=== PATIENT | male | born 1960 | race Two or more races ===

== ENCOUNTER 2020-04-30 12:22 | Inpatient (IN) | payer MEDICAID, OTHER ==
[~2020-04-30] VITALS: Ht 165.1 cm; Wt 82.5 kg
[2020-04-30] MEDS ORDERED: methylPREDNISolone SOD SUCC 125 MG/2 ML VL IV ONE (12:45)
[2020-04-30 13:29] LABS: Basophils # (auto) 0.1 10 ^3/uL (0-0.2); Basophils % (auto) 0.6 % (0.0-2.0); Eosinophils # (auto) 0 10 ^3/uL (0-0.8); Eosinophils % (auto) 0.3 % (0.0-7.0); Hematocrit 50.4 % (41.0-53.0); Lymphocytes # (auto) 0.7 10 ^3/uL (0.4-5.4); Lymphocytes % (auto) 6.2 % (10.0-50.0); Mean Corpuscular Hgb Conc. 33.7 g/dL (32.0-36.0); Mean Corpuscular Volume 86.2 fL (80.0-100.0); Monocytes # (auto) 0.7 10 ^3/uL (0-1.3); Monocytes % (auto) 5.5 % (0.0-12.0); Neutrophils # (auto) 10.3 10 ^3/uL (1.6-8.6); Neutrophils % (auto) 87.4 % (37.0-80.0); Nucleated Red Blood Cells % 0.1 %; Platelet Count (auto) 348 10^3/uL (140-450); Red Blood Cells 5.84 10^6/uL (4.5-5.90); Red Cell Distribution Width 13.4 % (11.8-14.3); White Blood Cell 11.8 10^3/uL (4.4-10.8)
[2020-04-30 13:55] LABS: Lactic Acid w/Reflex 2.3 mmol/L (0.4-2.0)
[2020-04-30 13:56] LABS: Albumin 2.3 g/dL (3.4-5.0); Anion Gap 10 (5-15); Blood Urea Nitrogen 24 mg/dL (7-18); Calcium 8.5 mg/dL (8.5-10.1); Carbon Dioxide 22 mmol/L (21-32); Chloride 108 mmol/L (98-107); Glucose 87 mg/dL (74-106); Potassium 3.7 mmol/L (3.5-5.1); Sodium 140 mmol/L (136-145)
[2020-04-30 14:04] LABS: Alanine Aminotransferase 51 U/L (16-61); Alkaline Phosphatase 94 U/L (45-117); Aspartate Aminotransferase 59 U/L (15-37); BUN/Creatinine Ratio 25.8; Bilirubin, Total 1.4 mg/dL (0.2-1.0); GFR African American 107 mL/min; GFR Non-African American 88 mL/min; Lactate Dehydrogenase 567 U/L (87-241)
[2020-04-30 14:24] LABS: CRP High Sensitivity > 19 mg/dL (< 0.3)
[2020-04-30] MEDS ORDERED: ONDANSETRON HCL 4 MG/2 ML VIAL IV PRN (15:15)
[2020-04-30] MEDS ORDERED: DOCUSATE SOD 100 MG CAP PO PRN (15:15)
[2020-04-30] MEDS ORDERED: VANCOMYCIN PER PHARMACY 0 MG IV SCH (15:15)
[2020-04-30] MEDS ORDERED: MORPHINE SULF INJ 2 MG/ML SYRINGE 1ML IV PRN ×2 (15:15)
[2020-04-30] MEDS ORDERED: NITROGLYCERIN 0.4 MG SL TAB SL PRN (15:15)
[2020-04-30] MEDS ORDERED: ACETAMINOPHEN 500 MG TAB PO PRN (15:15)
[2020-04-30] MEDS ORDERED: ENOXAPARIN SOD 80 MG/0.8ML SYRINGE SC ONE (15:30)
[2020-04-30] MEDS ORDERED: PIPERACILLIN-TAZOB 3.375GM 100 ML IV ONE (15:30)
[2020-04-30] MEDS ORDERED: FUROSEMIDE 100 MG/10ML VIAL IV ONE (18:00)
[2020-04-30 19:16] LABS: Cholesterol 138 mg/dL (< 200); HDL Cholesterol 26 mg/dL (40-59); LDL Cholesterol 101 mg/dL (< 100); Triglycerides 119 mg/dL (< 150)
[2020-04-30] MEDS: VANCOMYCIN 1GM/250ML 250 ML IV SCH (20:26)
[2020-04-30] MEDS: methylPREDNISolone SOD SUCC 40 MG/ML VL IV SCH (21:32)
[2020-04-30] MEDS: ATORVASTATIN 20 MG TAB PO SCH (21:33)
--- NOTE | 2020-04-30 21:45 | NUR ---
ADMITTED PATIENT FROM THE ER, AAOX4. SOB NOTED. AFEBRILE. DENIES ANY PAIN NOW. PATIENT IS TACHYPNEIC. PATIENT IS IN A NRM AT 15 LPM. EDUCATED PATIENT ON PRONING. UNABLE TO TOLERATE IT. MADE RT AWARE OF THE SITUATION. CALL CHARGE NURSE JACE TO GET A BOX TO MONITOR PATIENT'S SATURATION. ORIENTATION GIVEN. ROUTINE ADMISSION INITIATED. POCS DISCUSSED WITH PATIENT AND SHOWED UNDERSTANDING. BED KEPT ON LOWEST POSITION. SIDE RAILS UP. CALL LIGHT/TABLE IN REACH. KEPT COMFORTABLE.
[2020-04-30 22:00] VITALS: BP 130/82
--- NOTE | 2020-04-30 22:04 | NUR ---
MADE RT AWARE THAT PATIENT'S O2 SAT CAN ONLY GO UP TO 86% WITH THE NRM AT 15LPM. ENCOURAGED PRONING, BUT PATIENT SAID THAT HE IS NOT COMFORTABLE PRONING.
[2020-04-30] MEDS ORDERED: ALBU108A5 IN (22:17)
[2020-04-30] MEDS ORDERED: IBUP800T24 PO (22:17)
[2020-04-30] MEDS ORDERED: PRED20TA2 PO (22:17)
[2020-04-30] MEDS ORDERED: LOSA25TA38 PO (22:17)
[2020-04-30] MEDS ORDERED: ACET-1304 PO (22:17)
--- NOTE | 2020-04-30 22:30 | NUR ---
O2 SAT MONITOR NOT WORKING WHEN CONNECTED TO THE TELE BOX. SPOKE WITH ICU TO CHANGE TELE BOX TO SEE IF IT WORKS THIS TIME.
[2020-04-30] MEDS: ALBUTEROL SULF HFA 90MCG INH 200DOSE IN SCH (22:55)
[2020-04-30] MEDS: BUDESONIDE (INHALATION) 180 MCG IH IN SCH (22:55)
[2020-04-30] MEDS: PIPERACILLIN-TAZOB 3.375GM 100 ML IV SCH (23:39)
[2020-05-01 02:10] VITALS: BP 130/82
[2020-05-01 05:00] VITALS: BP 101/63
[2020-05-01] MEDS: methylPREDNISolone SOD SUCC 40 MG/ML VL IV SCH ×2 (05:40→16:10)
[2020-05-01] MEDS: FUROSEMIDE 20 MG/2 ML VIAL IV SCH ×2 (05:40→18:44)
[2020-05-01] MEDS: PIPERACILLIN-TAZOB 3.375GM 100 ML IV SCH ×2 (05:41→13:13)
[2020-05-01 06:27] LABS: Basophils # (auto) 0 10 ^3/uL (0-0.2); Basophils % (auto) 0.2 % (0.0-2.0); Eosinophils # (auto) 0 10 ^3/uL (0-0.8); Hematocrit 51.3 % (41.0-53.0); Hemoglobin 16.7 g/dL (13.5-17.5); Lymphocytes # (auto) 0.7 10 ^3/uL (0.4-5.4); Lymphocytes % (auto) 7.3 % (10.0-50.0); Mean Corpuscular Hemoglobin 28.6 pg (28.0-32.0); Mean Corpuscular Hgb Conc. 32.6 g/dL (32.0-36.0); Mean Corpuscular Volume 87.7 fL (80.0-100.0); Monocytes # (auto) 0.3 10 ^3/uL (0-1.3); Monocytes % (auto) 2.8 % (0.0-12.0); Neutrophils # (auto) 8.5 10 ^3/uL (1.6-8.6); Neutrophils % (auto) 89.7 % (37.0-80.0); Nucleated Red Blood Cells % 0.2 %; Platelet Count (auto) 400 10^3/uL (140-450); Red Blood Cells 5.85 10^6/uL (4.5-5.90); Red Cell Distribution Width 13.1 % (11.8-14.3); White Blood Cell 9.5 10^3/uL (4.4-10.8)
[2020-05-01 06:48] LABS: Albumin 2.2 g/dL (3.4-5.0); Calcium 8.9 mg/dL (8.5-10.1); Potassium 3.5 mmol/L (3.5-5.1)
[2020-05-01 06:54] LABS: BUN/Creatinine Ratio 26.3; Bilirubin, Total 1.2 mg/dL (0.2-1.0); Total Protein 8.5 g/dL (6.4-8.2)
[2020-05-01] MEDS: BUDESONIDE (INHALATION) 180 MCG IH IN SCH ×2 (07:19→22:14)
[2020-05-01] MEDS: ALBUTEROL SULF HFA 90MCG INH 200DOSE IN SCH ×3 (07:19→22:14)
--- NOTE | 2020-05-01 07:30 | NUR ---
Opening Shift Note Assumed patient care from NOC RN. Patient is currently laying in bed prone 15L nonrebreather mask. Patient experiences shortness of breath, tachypnea, and O2 saturation decreased to 86% with exertion/sitting up in bed. Patient O2 saturation currently at 93%. Safety precautions in place. Patient states, "I don't feel short of breath when I relax." Will continue to monitor q1hr and PRN.
[2020-05-01 09:00] VITALS: BP 124/72
[2020-05-01] MEDS: ASPirin 81 mg TAB PO SCH (09:06)
[2020-05-01] MEDS: ZINC SULFATE 220mg CAP or TAB PO SCH (09:06)
[2020-05-01] MEDS: VANCOMYCIN 1GM/250ML 250 ML IV SCH (09:07)
[2020-05-01] MEDS: ENOXAPARIN SOD 80 MG/0.8ML SYRINGE SC SCH ×2 (09:07→22:19)
--- NOTE | 2020-05-01 12:26 | NUR ---
Nutrition Assessment/Consult Notes Please refer to link for full assessment notes. Est Energy needs: 7048-3529 kcals (17-20 kcal/kgBW) Est Protein needs: 67-84 gms/day (0.8-1.0 gm/kgBW) Will continue to monitor and reassess prn. Addendum: 05/01/20 at [address] Amended: Links added.
[2020-05-01 13:00] VITALS: BP 123/80
[2020-05-01] MEDS: CHOLECALCIFEROL (VITD3) 2,000 UNIT CAP PO SCH (13:13)
[2020-05-01] MEDS: ASCORBIC ACID 1,000 MG TAB PO SCH (13:13)
--- NOTE | 2020-05-01 15:24 | NUR ---
SpO2 Patient SpO2 decreased to 73%. On assessment patient was tachypneic and tachycardic. Per patient, he was washing his face with a washcloth and briefly removed mask to clean face. Patient educated on need to maintain nonrebreather mask; patient verbalized understanding. Patient placed in prone position RR 28 Spo2 currently 96% on 15L nonrebreather mask. Safety precautions in place, continuous pulse ox in place. Will continue to monitor q1hr and PRN. Left message with Dr. Moody notifying of patient status.
--- NOTE | 2020-05-01 16:19 | NUR ---
assessment re: ss consult Insurance Patient is a 59 year old male who is alert and oriented. Per patients daughter Yun patient lives home with family and is independent. Patient still works. Patient has no need for DME. Patients whole family is covid positive isolating at home. I informed Yun that per consult no insurance. I informed Yun that patient has medi-johana per our census. I will have Guerrero Canales from [facility] look into insurance status of his medi-johana. I informed Yun I will continue to monitor and follow up as appropriate for any post discharge needs. Yun verbalized understanding. Addendum: 05/01/20 at 1622 by Emily JANSEN Amended: Links added.
[2020-05-01] MEDS ORDERED: REMDESIVIR PER PHARMACY IV SCH (16:30)
[2020-05-01] MEDS ORDERED: AZITHROMYCIN 250 MG TAB PO ONE (16:30)
--- NOTE | 2020-05-01 16:50 | NUR ---
Called Patient currently refusing plasma due to mormonism restrictions ([employer]thodox). Dr. Moody notified and is aware.
[2020-05-01 17:00] VITALS: BP 123/77
--- NOTE | 2020-05-01 17:08 | NUR ---
Consents Corey Patient currently reviewing consent form in Syriac. Per patient, he is "almost finished."
--- NOTE | 2020-05-01 17:30 | NUR ---
Consents Medication consent faxed to pharmacy.
--- NOTE | 2020-05-01 19:27 | NUR ---
Closing Shift Note Endorsed care to NOC RN. Patient currently on 15L nonrebreather at 93% SpO2.
--- NOTE | 2020-05-01 19:31 | NUR ---
Opening Shift Note Assumed care of patient, awake and alert. No S/S of distress/SOB or pain. Instructed on POC and to call for assistance PRN, will continue to monitor for changes Q1hr and PRN. Safety precautions in place bed is in lowest position and locked, bed rails 2x.
[2020-05-01] MEDS ORDERED: REMDESIVIR 200 MG in NS 210ml LOADING DOSE ADULT IV ONE (20:00)
--- NOTE | 2020-05-01 21:56 | NUR ---
Remdesivir Administration Pre infusion BP:111/66 HR: 109, 15 minutes after the start of infusion BP: 116/65 HR: 94 No s/s of distress or SOB, tolerating well, Post infusion BP: 120/74 HR: 99 Patient has no s/s of distress or SOB, no complaints. Will continue to monitor Q1 and PRN.
[2020-05-01 22:00] VITALS: BP 111/66
[2020-05-01] MEDS: ATORVASTATIN 20 MG TAB PO SCH (22:19)
[2020-05-01 23:01] LABS: Urine Bacteria NONE SEEN /hpf (None Seen); Urine Blood Negative /uL (Negative); Urine Specific Gravity 1.018 (1.001-1.035); Urine WBC 1 /hpf (0 - 3)
[2020-05-01 23:22] LABS: Alcohol, Urine < 3.0 mg/dL (0-10); Amphetamine Screen, Urine NEGATIVE (NEGATIVE); Barbiturate Scree,Urine NEGATIVE (NEGATIVE); Benzodiazephine Screen, Urine NEGATIVE (NEGATIVE); Cannabinoid Screen, Urine NEGATIVE (NEGATIVE); Cocaine Screen, Urine NEGATIVE (NEGATIVE); Opiate Scree,Urine NEGATIVE (NEGATIVE); Phencyclidine Screen, Urine NEGATIVE (NEGATIVE)
[2020-05-02 05:00] VITALS: BP 115/69
[2020-05-02] MEDS: ALBUTEROL SULF HFA 90MCG INH 200DOSE IN SCH ×3 (06:00→22:10)
[2020-05-02] MEDS: FUROSEMIDE 20 MG/2 ML VIAL IV SCH ×2 (06:42→17:34)
[2020-05-02] MEDS: BUDESONIDE (INHALATION) 180 MCG IH IN SCH ×2 (07:07→22:10)
[2020-05-02 08:40] LABS: Lactic Acid w/Reflex 2.5 mmol/L (0.4-2.0)
[2020-05-02 09:00] VITALS: BP 106/73
[2020-05-02 09:00] LABS: Albumin 2.2 g/dL (3.4-5.0); BUN/Creatinine Ratio 35.1; Calcium 8.1 mg/dL (8.5-10.1); Potassium 3.4 mmol/L (3.5-5.1)
[2020-05-02 09:03] LABS: Bilirubin, Total 0.8 mg/dL (0.2-1.0); Total Protein 7.8 g/dL (6.4-8.2)
[2020-05-02] MEDS: ASPirin 81 mg TAB PO SCH (10:30)
[2020-05-02] MEDS: DexAMETHasone SOD PHOS 10MG/1ML VIAL INJ IV SCH (10:30)
[2020-05-02] MEDS: ZINC SULFATE 220mg CAP or TAB PO SCH (10:31)
[2020-05-02] MEDS: AZITHROMYCIN 250 MG TAB PO SCH (10:31)
[2020-05-02] MEDS: ASCORBIC ACID 1,000 MG TAB PO SCH (10:31)
[2020-05-02] MEDS: CHOLECALCIFEROL (VITD3) 2,000 UNIT CAP PO SCH (10:31)
[2020-05-02] MEDS: ACETAMINOPHEN 325 MG TAB PO PRN (10:32)
[2020-05-02] MEDS: ENOXAPARIN SOD 80 MG/0.8ML SYRINGE SC SCH ×2 (10:32→22:11)
[2020-05-02 13:00] VITALS: BP 126/70
[2020-05-02 17:00] VITALS: BP 120/78
[2020-05-02] MEDS: REMDESIVIR 100mg in NS 230ml DAILYx4DAYS (NO VENT) IV SCH (17:08)
--- NOTE | 2020-05-02 19:22 | NUR ---
Opening Shift Note Assumed care of patient, awake, alert and oriented x4. Patient on 15L of oxygen via nonrebreather with even and unlabored respirations, no S/S of distress/SOB or pain. Patient able to turn in bed independently, bed in lowest locked position, side rails up x2, and call light within reach. Instructed on POC and to call for assist PRN, will continue to monitor for changes Q1hr and PRN.
[2020-05-02 21:46] VITALS: BP 123/72
[2020-05-02] MEDS: ATORVASTATIN 20 MG TAB PO SCH (22:11)
[2020-05-02] MEDS ORDERED: POTASSIUM CHL 20MEQ/100ML 100 ML IV ONE (22:30)
[2020-05-03 05:03] VITALS: BP 132/74
[2020-05-03] MEDS: FUROSEMIDE 20 MG/2 ML VIAL IV SCH ×2 (06:05→17:58)
[2020-05-03 07:07] LABS: Potassium 3.7 mmol/L (3.5-5.1)
[2020-05-03 07:14] LABS: Albumin 2.2 g/dL (3.4-5.0); BUN/Creatinine Ratio 36.3; Bilirubin, Total 0.7 mg/dL (0.2-1.0); Calcium 8.2 mg/dL (8.5-10.1); Total Protein 7.3 g/dL (6.4-8.2)
[2020-05-03] MEDS: ALBUTEROL SULF HFA 90MCG INH 200DOSE IN SCH ×3 (07:25→23:15)
[2020-05-03] MEDS: BUDESONIDE (INHALATION) 180 MCG IH IN SCH ×2 (07:25→23:15)
[2020-05-03 09:00] VITALS: BP 108/57
[2020-05-03] MEDS: DexAMETHasone SOD PHOS 10MG/1ML VIAL INJ IV SCH (10:15)
[2020-05-03] MEDS: CHOLECALCIFEROL (VITD3) 2,000 UNIT CAP PO SCH (10:16)
[2020-05-03] MEDS: ZINC SULFATE 220mg CAP or TAB PO SCH (10:16)
[2020-05-03] MEDS: AZITHROMYCIN 250 MG TAB PO SCH (10:16)
[2020-05-03] MEDS: ASCORBIC ACID 1,000 MG TAB PO SCH (10:16)
[2020-05-03] MEDS: ASPirin 81 mg TAB PO SCH (10:16)
[2020-05-03] MEDS: POTASSIUM CHL 20 Meq TABLET PO SCH (10:16)
[2020-05-03] MEDS: ENOXAPARIN SOD 80 MG/0.8ML SYRINGE SC SCH ×2 (10:17→22:19)
--- NOTE | 2020-05-03 12:10 | NUR ---
DR BROWNING AT BEDSIDE TO SEE PATIENT ALL QUESTIONS AND CONCERNS ADDRESSED.
[2020-05-03 13:00] VITALS: BP 124/75
[2020-05-03 16:46] VITALS: BP 120/71
--- NOTE | 2020-05-03 17:00 | NUR ---
REMDESIVIR STARTED BP 127/80 NO SIGNS OF DISTRESS.
[2020-05-03] MEDS: REMDESIVIR 100mg in NS 230ml DAILYx4DAYS (NO VENT) IV SCH (17:20)
--- NOTE | 2020-05-03 17:21 | NUR ---
BP 130/80 NO SIGNS OF DISTRESS.
[2020-05-03] MEDS: ACETAMINOPHEN 325 MG TAB PO PRN (18:45)
--- NOTE | 2020-05-03 19:21 | NUR ---
Opening Shift Note Assumed care of patient, awake, alert and oriented x4, on 15L of oxygen via nonrebreather with even and unlabored respirations, no S/S of distress/SOB or pain. Patient able to turn in bed independently, bed in lowest locked position, side rails up x2, and call light within reach. Instructed on POC and to call for assist PRN, will continue to monitor for changes Q1hr and PRN.
[2020-05-03 22:00] VITALS: BP 116/73
[2020-05-03] MEDS: ATORVASTATIN 20 MG TAB PO SCH (22:19)
[2020-05-03] MEDS: HYDROcodone-ACET 5/325MG TAB PO PRN (22:55)
[2020-05-04 03:40] VITALS: BP 116/73
[2020-05-04 05:00] VITALS: BP 136/81
[2020-05-04] MEDS: FUROSEMIDE 20 MG/2 ML VIAL IV SCH ×2 (06:20→18:07)
[2020-05-04] MEDS: HYDROcodone-ACET 5/325MG TAB PO PRN (06:30)
[2020-05-04] MEDS: ALBUTEROL SULF HFA 90MCG INH 200DOSE IN SCH ×3 (06:46→23:22)
[2020-05-04] MEDS: BUDESONIDE (INHALATION) 180 MCG IH IN SCH ×2 (06:46→23:22)
[2020-05-04 07:34] LABS: Basophils # (auto) 0.2 10 ^3/uL (0-0.2); Eosinophils # (auto) 0 10 ^3/uL (0-0.8); Hematocrit 50.2 % (41.0-53.0); Lymphocytes # (auto) 1.2 10 ^3/uL (0.4-5.4); Monocytes # (auto) 0.4 10 ^3/uL (0-1.3); Red Blood Cells 5.74 10^6/uL (4.5-5.90)
[2020-05-04 07:36] LABS: Basophils % (auto) 1.4 % (0.0-2.0); Hemoglobin 16.6 g/dL (13.5-17.5); Lymphocytes % (auto) 8.2 % (10.0-50.0); Mean Corpuscular Hemoglobin 28.8 pg (28.0-32.0); Mean Corpuscular Volume 87.4 fL (80.0-100.0); Monocytes % (auto) 2.8 % (0.0-12.0); Neutrophils % (auto) 87.6 % (37.0-80.0); Platelet Count (auto) 491 10^3/uL (140-450); Red Cell Distribution Width 12.9 % (11.8-14.3); White Blood Cell 14.8 10^3/uL (4.4-10.8)
[2020-05-04 07:48] LABS: Albumin 2.4 g/dL (3.4-5.0); Calcium 8.7 mg/dL (8.5-10.1); Magnesium 2.4 mg/dL (1.6-2.6); Potassium 3.9 mmol/L (3.5-5.1)
[2020-05-04 08:04] LABS: BUN/Creatinine Ratio 27.5; CRP High Sensitivity 5.81 mg/dL (< 0.3); Total Protein 7.8 g/dL (6.4-8.2)
[2020-05-04 09:00] VITALS: BP 130/75
[2020-05-04] MEDS: POTASSIUM CHL 20 Meq TABLET PO SCH (10:34)
[2020-05-04] MEDS: ASPirin 81 mg TAB PO SCH (10:34)
[2020-05-04] MEDS: DexAMETHasone SOD PHOS 10MG/1ML VIAL INJ IV SCH (10:34)
[2020-05-04] MEDS: ENOXAPARIN SOD 80 MG/0.8ML SYRINGE SC SCH ×2 (10:35→22:16)
[2020-05-04] MEDS: CHOLECALCIFEROL (VITD3) 2,000 UNIT CAP PO SCH (10:35)
[2020-05-04] MEDS: ASCORBIC ACID 1,000 MG TAB PO SCH (10:35)
[2020-05-04] MEDS: AZITHROMYCIN 250 MG TAB PO SCH (10:35)
[2020-05-04] MEDS: ZINC SULFATE 220mg CAP or TAB PO SCH (10:35)
[2020-05-04 13:00] VITALS: BP 120/70
--- NOTE | 2020-05-04 13:18 | NUR ---
Nutrition Followup Notes Pt wt is 83.4 kg Pt is positive for COVID, with a Regular diet. Pt appetite is good aeb ave 70% PO intake per RN doc. Est Energy needs: 6474-2264 kcals (17-20 kcal/kgBW) Est Protein needs: 67-84 gms/day (0.8-1.0 gm/kgBW) Will continue to monitor and reassess prn. LABS: BUN 22 H, GLUC 123 H, ALB 2.4 L GI: Pt had 1 BM on 05/03 per RN doc. BS: 21 low risk. Please refer to wound assessment report for further details PES: 1) Obesity r/t energy intake in excess of energy needs aeb BMI of 30.7 kg/2 2) Altered nutrition related lab values r/t current medical condition aeb elev RFT, hyperglycemia, hyperbilirubinemia, hypoalbuminemia Comments Will continue to monitor PO status, skin status, pertinent labs and weight trends. Will f/u in 3-5 days 1) Continue to closely monitor pt PO intake to meet at least 75% of meals 2) If albumin continues trending down, consider Prostat 1 pkt BID 3) Continue current plan of care
[2020-05-04 17:00] VITALS: BP 118/70
[2020-05-04] MEDS: REMDESIVIR 100mg in NS 230ml DAILYx4DAYS (NO VENT) IV SCH (17:31)
--- NOTE | 2020-05-04 19:50 | NUR ---
Opening Shift Note Assumed care of patient, awake and alert. No S/S of distress/SOB or pain. Bed locked and in lowest position with call light in reach. Instructed on POC and to call for assist PRN, will continue to monitor for changes Q1hr and PRN. Addendum: 05/04/20 at 2051 by RJ WOODS RN RN Patient is on 15 L Non-Rebreather
[2020-05-04] MEDS: ACETAMINOPHEN 325 MG TAB PO PRN (20:13)
[2020-05-04 22:00] VITALS: BP 116/67
[2020-05-04] MEDS: ATORVASTATIN 20 MG TAB PO SCH (22:15)
[2020-05-05 05:00] VITALS: BP 130/84
[2020-05-05] MEDS: FUROSEMIDE 20 MG/2 ML VIAL IV SCH ×2 (05:43→17:46)
[2020-05-05] MEDS: BUDESONIDE (INHALATION) 180 MCG IH IN SCH ×2 (06:37→21:58)
[2020-05-05] MEDS: ALBUTEROL SULF HFA 90MCG INH 200DOSE IN SCH ×3 (06:37→21:58)
[2020-05-05 06:54] LABS: Albumin 2.1 g/dL (3.4-5.0); BUN/Creatinine Ratio 23.9; Calcium 8.3 mg/dL (8.5-10.1); Potassium 4.1 mmol/L (3.5-5.1)
[2020-05-05 06:56] LABS: Bilirubin, Total 0.9 mg/dL (0.2-1.0); Total Protein 6.9 g/dL (6.4-8.2)
[2020-05-05 09:00] VITALS: BP 120/72
[2020-05-05] MEDS: ASPirin 81 mg TAB PO SCH (10:09)
[2020-05-05] MEDS: ENOXAPARIN SOD 80 MG/0.8ML SYRINGE SC SCH ×2 (10:09→22:18)
[2020-05-05] MEDS: AZITHROMYCIN 250 MG TAB PO SCH (10:09)
[2020-05-05] MEDS: DexAMETHasone SOD PHOS 10MG/1ML VIAL INJ IV SCH (10:09)
[2020-05-05] MEDS: ASCORBIC ACID 1,000 MG TAB PO SCH (10:09)
[2020-05-05] MEDS: CHOLECALCIFEROL (VITD3) 2,000 UNIT CAP PO SCH (10:09)
[2020-05-05] MEDS: POTASSIUM CHL 20 Meq TABLET PO SCH (10:09)
[2020-05-05] MEDS: ZINC SULFATE 220mg CAP or TAB PO SCH (10:10)
[2020-05-05] MEDS: REMDESIVIR 100mg in NS 230ml DAILYx4DAYS (NO VENT) IV SCH (16:56)
[2020-05-05 17:00] VITALS: BP 108/70
[2020-05-05] MEDS: ACETAMINOPHEN 325 MG TAB PO PRN (19:16)
--- NOTE | 2020-05-05 19:30 | NUR ---
Opening Shift Note Assumed care of patient, awake and alert. No S/S of distress/SOB or pain. Insructed on POC and to callfor assist PRN, will continue to monitor for changes Q1hr and PRN. Fall and safety precautions in place. Call light within reach.
[2020-05-05 22:00] VITALS: BP 125/91
[2020-05-05] MEDS: ATORVASTATIN 20 MG TAB PO SCH (22:18)
[2020-05-06 05:00] VITALS: BP 132/88
[2020-05-06] MEDS: FUROSEMIDE 20 MG/2 ML VIAL IV SCH ×2 (05:29→18:16)
[2020-05-06] MEDS: ACETAMINOPHEN 325 MG TAB PO PRN ×2 (06:02→20:50)
[2020-05-06] MEDS: ALBUTEROL SULF HFA 90MCG INH 200DOSE IN SCH ×3 (06:44→22:17)
[2020-05-06] MEDS: BUDESONIDE (INHALATION) 180 MCG IH IN SCH ×2 (06:44→22:17)
[2020-05-06 09:00] VITALS: BP 129/86
[2020-05-06] MEDS: DexAMETHasone SOD PHOS 10MG/1ML VIAL INJ IV SCH (10:29)
[2020-05-06] MEDS: ASPirin 81 mg TAB PO SCH (10:29)
[2020-05-06] MEDS: ZINC SULFATE 220mg CAP or TAB PO SCH (10:29)
[2020-05-06] MEDS: CHOLECALCIFEROL (VITD3) 2,000 UNIT CAP PO SCH (10:30)
[2020-05-06] MEDS: ENOXAPARIN SOD 80 MG/0.8ML SYRINGE SC SCH ×2 (10:30→20:50)
[2020-05-06] MEDS: ASCORBIC ACID 1,000 MG TAB PO SCH (10:30)
[2020-05-06 13:00] VITALS: BP 140/75
[2020-05-06 17:00] VITALS: BP 116/81
[2020-05-06] MEDS: ATORVASTATIN 20 MG TAB PO SCH (20:49)
[2020-05-06 22:00] VITALS: BP 135/87
[2020-05-07] VITALS (8 sets, daily range): BP systolic 116–126; BP diastolic 73–84
[2020-05-07] MEDS: FUROSEMIDE 20 MG/2 ML VIAL IV SCH ×2 (06:03→18:22)
[2020-05-07] MEDS: ALBUTEROL SULF HFA 90MCG INH 200DOSE IN SCH ×3 (06:54→22:29)
[2020-05-07] MEDS: BUDESONIDE (INHALATION) 180 MCG IH IN SCH ×2 (06:54→22:29)
--- NOTE | 2020-05-07 07:40 | NUR ---
Opening Shift Note Assumed care of patient, awake and alert. No S/S of distress/SOB or pain. Instructed on POC and to call for assist PRN, will continue to monitor for changes Q1hr and PRN. Bed locked in lowest position with two side rails up and call light in reach.
--- NOTE | 2020-05-07 10:46 | NUR ---
DR NALLELY ALANIZ DISCUSSED THE PLAN OF CARE WITH PATIENT.
[2020-05-07] MEDS: DexAMETHasone SOD PHOS 10MG/1ML VIAL INJ IV SCH (10:48)
[2020-05-07] MEDS: ASPirin 81 mg TAB PO SCH (10:48)
[2020-05-07] MEDS: ENOXAPARIN SOD 80 MG/0.8ML SYRINGE SC SCH ×2 (10:49→21:13)
[2020-05-07] MEDS: ZINC SULFATE 220mg CAP or TAB PO SCH (10:49)
[2020-05-07] MEDS: ASCORBIC ACID 1,000 MG TAB PO SCH (10:49)
[2020-05-07] MEDS: CHOLECALCIFEROL (VITD3) 2,000 UNIT CAP PO SCH (10:49)
[2020-05-07] MEDS: ACETAMINOPHEN 325 MG TAB PO PRN (11:07)
--- NOTE | 2020-05-07 12:25 | NUR ---
Nutrition Followup Notes Pt wt is 82.2 kg Pt is positive for COVID, with a Regular diet. Pt appetite is improved and good aeb ave 92% PO intake per RN doc. Est Energy needs: 6853-3567 kcals (17-20 kcal/kgBW) Est Protein needs: 67-84 gms/day (0.8-1.0 gm/kgBW) Will continue to monitor and reassess prn. LABS: CA 8.3 L, ALB 2.1 L GI: Pt had 1 BM on 05/06 per RN doc. BS: 20 low risk. Please refer to wound assessment report for further details PES: 1) Obesity r/t energy intake in excess of energy needs aeb BMI of 30.7 kg/2 2) Altered nutrition related lab values r/t current medical condition aeb elev RFT, hyperglycemia, hyperbilirubinemia, hypoalbuminemia Comments Will continue to monitor PO status, skin status, pertinent labs and weight trends. Will f/u in 3-5 days 1) Continue to closely monitor pt PO intake to meet at least 75% of meals 2) If albumin continues trending down, consider Prostat 1 pkt BID 3) Continue current plan of care
--- NOTE | 2020-05-07 14:30 | NUR ---
REPORT RECEIVED FROM TOBI LEONARDO CONTINUE CARE
--- NOTE | 2020-05-07 15:00 | NUR ---
ASSESSMENT NOTE PT IS ALERT ORIENTED X4, RESTING IN BED COMFORTABLY ON A SITTING POSITION, ABLE TO SELF REPOSITION AND VERBALIS HIS NEEDS, 15 L NON REBREATHER MASK, PAIN 0/10, CALL LIGHT WITHIN REACH
--- NOTE | 2020-05-07 18:00 | NUR ---
PT IS SITTING AT THE SIDE OF THE BED EATING DINNER, CONTINUE MONITORING
--- NOTE | 2020-05-07 18:58 | NUR ---
PT CONTINUE STABLE, NO DISTRESS NOTED, CONTINUE MONITORING
--- NOTE | 2020-05-07 20:10 | NUR ---
Opening Shift Note Assumed care of patient, awake and alert. No S/S of distress/SOB or pain. Patient on 15L non-rebreather. Instructed on POC and to call for assist PRN, will continue to monitor for changes Q1hr and PRN.
[2020-05-07] MEDS: ATORVASTATIN 20 MG TAB PO SCH (21:13)
[2020-05-07] MEDS: LORazepam 0.5 MG TAB PO PRN (21:13)
[2020-05-08 05:00] VITALS: BP 125/79
[2020-05-08] MEDS: FUROSEMIDE 20 MG/2 ML VIAL IV SCH ×2 (05:24→17:05)
[2020-05-08] MEDS: ALBUTEROL SULF HFA 90MCG INH 200DOSE IN SCH ×3 (06:05→19:05)
--- NOTE | 2020-05-08 07:35 | NUR ---
Opening Shift Note Assumed care of patient, awake and alert. A/O X 4. Patient on 15L non-rebreather, saturations at 95%. No S/S of distress/SOB. Patient is complaining of a headache 5/10 but states that he can tolerate it and does not require any pain medication at this time. Skin is warm and dry with bruising noted on the abdomen around the umbilicus. Patient states that it is from the "injections". Instructed on POC and to call for assist PRN. Safety measures are in place and the call light is within reach of the patient. Will continue to monitor for changes Q1hr and PRN.
[2020-05-08 08:00] VITALS: BP 107/44
[2020-05-08 08:37] VITALS: BP 117/79
[2020-05-08] MEDS: ASPirin 81 mg TAB PO SCH (09:59)
[2020-05-08] MEDS: ASCORBIC ACID 1,000 MG TAB PO SCH (09:59)
[2020-05-08] MEDS: DexAMETHasone SOD PHOS 10MG/1ML VIAL INJ IV SCH (09:59)
[2020-05-08] MEDS: ENOXAPARIN SOD 80 MG/0.8ML SYRINGE SC SCH ×2 (09:59→21:13)
[2020-05-08] MEDS: ZINC SULFATE 220mg CAP or TAB PO SCH (09:59)
[2020-05-08] MEDS: CHOLECALCIFEROL (VITD3) 2,000 UNIT CAP PO SCH (09:59)
--- NOTE | 2020-05-08 10:50 | NUR ---
Dr. Moody at bedside Dr. Moody at bedside discussing the POC with the patient. O2 titrated down to 12L. Will continue to monitor.
[2020-05-08 12:30] VITALS: BP 117/79
[2020-05-08] MEDS ORDERED: POLYETHYLENE GLYCOL 17 GM PWDR PO PRN (14:45)
[2020-05-08 17:00] VITALS: BP 130/76
[2020-05-08] MEDS: BUDESONIDE (INHALATION) 180 MCG IH IN SCH (19:05)
--- NOTE | 2020-05-08 19:35 | NUR ---
Opening Shift Note Assumed care of patient, awake and alert. No S/S of distress/SOB or pain. Updated on POC and to call for assist PRN, patient verbalized understanding. Bed in lowest and locked position, call light within reach, will continue to monitor for changes Q1hr and PRN.
[2020-05-08] MEDS: ATORVASTATIN 20 MG TAB PO SCH (21:13)
[2020-05-08] MEDS: LORazepam 0.5 MG TAB PO PRN (21:50)
[2020-05-08 22:00] VITALS: BP 121/74
[2020-05-09 05:00] VITALS: BP 118/72
[2020-05-09] MEDS: FUROSEMIDE 20 MG/2 ML VIAL IV SCH ×2 (05:40→18:00)
[2020-05-09 06:48] LABS: Basophils # (auto) 0 10 ^3/uL (0-0.2); Basophils % (auto) 0.2 % (0.0-2.0); Eosinophils # (auto) 0 10 ^3/uL (0-0.8); Hematocrit 50.4 % (41.0-53.0); Hemoglobin 16.6 g/dL (13.5-17.5); Lymphocytes # (auto) 1.2 10 ^3/uL (0.4-5.4); Mean Corpuscular Hemoglobin 28.1 pg (28.0-32.0); Mean Corpuscular Hgb Conc. 32.8 g/dL (32.0-36.0); Mean Corpuscular Volume 85.6 fL (80.0-100.0); Monocytes # (auto) 0.9 10 ^3/uL (0-1.3); Monocytes % (auto) 5.1 % (0.0-12.0); Neutrophils # (auto) 15.1 10 ^3/uL (1.6-8.6); Neutrophils % (auto) 87.7 % (37.0-80.0); Nucleated Red Blood Cells % 0.4 %; Platelet Count (auto) 420 10^3/uL (140-450); Red Blood Cells 5.89 10^6/uL (4.5-5.90); Red Cell Distribution Width 12.8 % (11.8-14.3); White Blood Cell 17.2 10^3/uL (4.4-10.8)
--- NOTE | 2020-05-09 07:00 | NUR ---
Opening Shift Note Assumed care of patient, awake and alert. A/O X 4. No S/S of distress/SOB or pain. Patient is on 12L non-rebreather saturations at 95%. Instructed on POC and to call for assist PRN. Patient verbalized understanding. Safety measures are in place and the call light is within reach of the patient. Will continue to monitor for changes Q1hr and PRN.
[2020-05-09] MEDS: ALBUTEROL SULF HFA 90MCG INH 200DOSE IN SCH (07:04)
[2020-05-09] MEDS: BUDESONIDE (INHALATION) 180 MCG IH IN SCH ×3 (07:04→20:20)
--- NOTE | 2020-05-09 07:18 | NUR ---
Dr. Moody at bedside Dr. Moody at bedside discussing the POC with the patient.
[2020-05-09 07:57] LABS: Albumin 2.6 g/dL (3.4-5.0); Calcium 8.6 mg/dL (8.5-10.1); Magnesium 2.7 mg/dL (1.6-2.6); Potassium 3.5 mmol/L (3.5-5.1)
[2020-05-09 08:02] LABS: BUN/Creatinine Ratio 24.7; Bilirubin, Total 1.1 mg/dL (0.2-1.0); Total Protein 7.6 g/dL (6.4-8.2)
[2020-05-09 08:57] VITALS: BP 112/75
[2020-05-09] MEDS ORDERED: POTASSIUM CHL 20 Meq TABLET PO ONE (09:00)
[2020-05-09] MEDS: ENOXAPARIN SOD 80 MG/0.8ML SYRINGE SC SCH ×2 (10:00→21:45)
[2020-05-09] MEDS: DexAMETHasone SOD PHOS 10MG/1ML VIAL INJ IV SCH (11:25)
[2020-05-09] MEDS: ASPirin 81 mg TAB PO SCH (11:25)
[2020-05-09] MEDS: ZINC SULFATE 220mg CAP or TAB PO SCH (11:26)
[2020-05-09] MEDS: ASCORBIC ACID 1,000 MG TAB PO SCH (11:26)
[2020-05-09] MEDS: CHOLECALCIFEROL (VITD3) 2,000 UNIT CAP PO SCH (11:37)
[2020-05-09 12:46] VITALS: BP 115/71
[2020-05-09 16:47] VITALS: BP 121/76
--- NOTE | 2020-05-09 19:40 | NUR ---
Opening Shift Note Assumed care of patient, awake and alert. No S/S of distress/SOB or pain. Able to use the bathroom with slight SOB. Updated on POC and to call for assist PRN, patient verbalized understanding. Bed in lowest and locked position, call light within reach, will continue to monitor for changes Q1hr and PRN.
--- NOTE | 2020-05-09 20:20 | NUR ---
Respiratory note: PT FOUND ON 10LNRB, SATS 95%. ATTEMPTED TO SWITCH PT TO OXYMIZER, PT REFUSED, STATES IT DRIES OUT HIS NOSE. INCREASED NRB BACK TO 12L, EXPLAINED TO PT NRB IS NOT TO GO BELOW 12LPM, PT STATES DR STATED TO START BRINGING OXYGEN DOWN. PT AGREES TO STAY ON 12LNRB.
[2020-05-09] MEDS: ATORVASTATIN 20 MG TAB PO SCH (21:46)
[2020-05-09] MEDS: ACETAMINOPHEN 325 MG TAB PO PRN (21:46)
[2020-05-09 22:00] VITALS: BP 111/77
[2020-05-09] MEDS: ALBUTEROL SULF HFA 90MCG INH 200DOSE IN PRN (23:00)
[2020-05-10] MEDS: FUROSEMIDE 20 MG/2 ML VIAL IV SCH ×2 (06:02→17:55)
[2020-05-10] MEDS: BUDESONIDE (INHALATION) 180 MCG IH IN SCH ×2 (06:14→21:31)
--- NOTE | 2020-05-10 07:35 | NUR ---
Opening Shift Note Assumed care of patient, awake and alert. A/O X 4. No S/S of distress/SOB or pain. Patient is on 10L non-rebreather saturations at 95%. Patient educated on the oxygen criteria associated with the Oxymizer versus the non-rebreather mask and their implications. Instructed on the need to use the Oxymizer and to continue to titrate down his supplemental oxygen. Patient verbalized understanding and Oxymizer was placed on the patient on 10L. Instructed on POC and to call for assist PRN. Patient verbalized understanding. Safety measures are in place and the call light is within reach of the patient. Will continue to monitor for changes Q1hr and PRN.
--- NOTE | 2020-05-10 07:55 | NUR ---
Dr. Moody at bedside Dr. Moody at bedside discussing the POC with the patient. All questions and concerns were answered at this time.
[2020-05-10 08:47] VITALS: BP 116/70
[2020-05-10] MEDS: ALBUTEROL SULF HFA 90MCG INH 200DOSE IN PRN ×2 (08:54→21:31)
[2020-05-10] MEDS: ASCORBIC ACID 1,000 MG TAB PO SCH (09:49)
[2020-05-10] MEDS: DexAMETHasone SOD PHOS 10MG/1ML VIAL INJ IV SCH (09:49)
[2020-05-10] MEDS: ASPirin 81 mg TAB PO SCH (09:49)
[2020-05-10] MEDS: CHOLECALCIFEROL (VITD3) 2,000 UNIT CAP PO SCH (09:50)
[2020-05-10] MEDS: ZINC SULFATE 220mg CAP or TAB PO SCH (09:50)
[2020-05-10] MEDS: ENOXAPARIN SOD 80 MG/0.8ML SYRINGE SC SCH ×2 (12:00→23:12)
--- NOTE | 2020-05-10 12:31 | NUR ---
Nutrition Followup Notes Wt: 83.1 kg Pt is positive for COVID, with a Regular diet with adequate Po of > 75% x 6 per RN doc. pt with no distress noted per RN doc Est Energy needs: 3058-3598 kcals (17-20 kcal/kgBW), Est Protein needs: 67-84 gms/day (0.8-1.0 gm/kgBW). Will continue to monitor and reassess prn. LABS: GLU 155 H, TYLER 1.1 H ALB 2.6 L GI: Pt had 2 BM today per RN doc. BS: 22 low risk. Please refer to wound assessment report for further details PES: 1) Obesity r/t energy intake in excess of energy needs aeb BMI of 30.7 kg/2 2) Altered nutrition related lab values r/t current medical condition aeb elev RFT, hyperglycemia, hyperbilirubinemia, hypoalbuminemia Comments: Will continue to monitor PO status, skin status, pertinent labs and weight trends. Will f/u in 3-5 days Rec: 1) If albumin continues trending down, consider Prostat 1 pkt BID. 2) Continue current plan of care
[2020-05-10 12:54] VITALS: BP 120/82
[2020-05-10 16:34] VITALS: BP 121/77
--- NOTE | 2020-05-10 19:35 | NUR ---
Opening shift note Assumed care from day shift RNLacy. Patient A&Ox4, respirations even and non-labored with no s/s of distress at this time. Patient on 8L by oxymizer with SPO2 at 96%. Patient states that he feels much better today. Discussed POC with patient who verbalized understanding. Safety precautions in place, bed in lowest locked position with 2 side rails up, call light within reach. Will continue to monitor Q1hr and PRN.
[2020-05-10 22:11] VITALS: BP 122/73
[2020-05-10] MEDS: ATORVASTATIN 20 MG TAB PO SCH (23:11)
[2020-05-10] MEDS: LORazepam 0.5 MG TAB PO PRN (23:12)
[2020-05-11 05:00] VITALS: BP 123/72
[2020-05-11] MEDS: FUROSEMIDE 20 MG/2 ML VIAL IV SCH ×2 (06:33→18:03)
[2020-05-11] MEDS: BUDESONIDE (INHALATION) 180 MCG IH IN SCH ×2 (06:40→18:47)
--- NOTE | 2020-05-11 07:38 | NUR ---
Closing shift note Patient resting without s/s of distress at this time. Endorsed care to day shift RN, Charisma.
[2020-05-11 08:00] VITALS: BP 137/84
--- NOTE | 2020-05-11 08:00 | NUR ---
Morning note Patient resting in bed with eyes closed; respirations even and unlabored on supplemental oxygen, no distress noted. Fall precautions in place with call light within reach.
[2020-05-11] MEDS: ASCORBIC ACID 1,000 MG TAB PO SCH (10:39)
[2020-05-11] MEDS: ZINC SULFATE 220mg CAP or TAB PO SCH (10:40)
[2020-05-11] MEDS: ASPirin 81 mg TAB PO SCH (10:40)
[2020-05-11] MEDS: CHOLECALCIFEROL (VITD3) 2,000 UNIT CAP PO SCH (10:40)
[2020-05-11] MEDS: ENOXAPARIN SOD 80 MG/0.8ML SYRINGE SC SCH ×2 (10:41→21:05)
[2020-05-11 13:00] VITALS: BP 109/76
[2020-05-11 17:13] VITALS: BP 116/79
--- NOTE | 2020-05-11 17:15 | NUR ---
Patient sitting in chair - no distress noted call light within reach.
--- NOTE | 2020-05-11 18:07 | NUR ---
RE: IV access Several attempts made to obtain new IV access. All attempts were unsuccessful.
--- NOTE | 2020-05-11 19:26 | NUR ---
Opening note Assumed care of patient, patient is alert and orientated x4. No sob or distress noted. POC reviewed. Bed is locked in lowest position, side rails up x2. Will continue to monitor q1hr and PRN.
--- NOTE | 2020-05-11 19:30 | NUR ---
Closing note/Care endorsed Patient resting in bed with even and unlabored respirations, no distress noted. Fall precautions in place with call light within reach.
[2020-05-11] MEDS: ALBUTEROL SULF HFA 90MCG INH 200DOSE IN PRN (20:28)
[2020-05-11] MEDS: ATORVASTATIN 20 MG TAB PO SCH (21:05)
[2020-05-11] MEDS: LORazepam 0.5 MG TAB PO PRN (21:10)
[2020-05-11 22:31] VITALS: BP 118/72
[2020-05-12] MEDS: ACETAMINOPHEN 325 MG TAB PO PRN (04:42)
[2020-05-12 05:12] VITALS: BP 117/76
[2020-05-12] MEDS: FUROSEMIDE 20 MG/2 ML VIAL IV SCH ×2 (05:53→17:09)
--- NOTE | 2020-05-12 07:23 | NUR ---
Closing note Endorsed care to day shift RN. no sob or distress noted.
[2020-05-12 08:47] VITALS: BP 115/81
[2020-05-12] MEDS: CHOLECALCIFEROL (VITD3) 2,000 UNIT CAP PO SCH (09:05)
[2020-05-12] MEDS: ASPirin 81 mg TAB PO SCH (09:05)
[2020-05-12] MEDS: ZINC SULFATE 220mg CAP or TAB PO SCH (09:05)
[2020-05-12] MEDS: ASCORBIC ACID 1,000 MG TAB PO SCH (09:06)
[2020-05-12] MEDS: ENOXAPARIN SOD 80 MG/0.8ML SYRINGE SC SCH (09:06)
[2020-05-12] MEDS: BUDESONIDE (INHALATION) 180 MCG IH IN SCH ×2 (10:00→22:07)
[2020-05-12] MEDS: ALBUTEROL SULF HFA 90MCG INH 200DOSE IN PRN ×2 (12:20→22:07)
[2020-05-12 12:22] VITALS: BP 109/71
--- NOTE | 2020-05-12 16:48 | NUR ---
RE: Covid-19 in-house test Order received from MD to retest patient. Order received and read back to verify.
[2020-05-12 17:04] VITALS: BP 109/86
--- NOTE | 2020-05-12 17:20 | NUR ---
In-house COVID swab collected per MD order & walked to lab by kindra Porter RN.
--- NOTE | 2020-05-12 17:25 | NUR ---
RE: Pulse ox/RA Patient on room air with pulse ox 92%. Instructed patient on deep breathing and coughing technique as well as continuing to use IS at bedside. Patient verbalized understanding. Respirations are even and unlabored on RA. No distress noted.
--- NOTE | 2020-05-12 18:50 | NUR ---
Closing note Patient resting in bed with even and unlabored respirations on room air, no distress noted. Fall precautions in place with call light within reach.
--- NOTE | 2020-05-12 19:30 | NUR ---
Care endorsed to JORDEN Burks.
--- NOTE | 2020-05-12 19:45 | NUR ---
Opening Shift Note Assumed care of patient, awake and alert. No S/S of distress/SOB or pain. Instructed on POC and to call for assist PRN, will continue to monitor for changes Q1hr and PRN.
[2020-05-12 20:00] VITALS: BP 111/74
[2020-05-12] MEDS: ATORVASTATIN 20 MG TAB PO SCH (21:28)
[2020-05-12] MEDS: LORazepam 0.5 MG TAB PO PRN (21:36)
[2020-05-12 23:18] VITALS: BP 111/74
[2020-05-13 05:10] VITALS: BP 113/73
[2020-05-13 06:09] LABS: Basophils # (auto) 0 10 ^3/uL (0-0.2); Basophils % (auto) 0.1 % (0.0-2.0); Eosinophils # (auto) 0.4 10 ^3/uL (0-0.8); Eosinophils % (auto) 3.1 % (0.0-7.0); Hematocrit 50.2 % (41.0-53.0); Hemoglobin 16.5 g/dL (13.5-17.5); Lymphocytes # (auto) 1.9 10 ^3/uL (0.4-5.4); Lymphocytes % (auto) 15.8 % (10.0-50.0); Mean Corpuscular Hemoglobin 28.4 pg (28.0-32.0); Mean Corpuscular Volume 86.2 fL (80.0-100.0); Monocytes # (auto) 0.7 10 ^3/uL (0-1.3); Monocytes % (auto) 5.7 % (0.0-12.0); Neutrophils % (auto) 75.3 % (37.0-80.0); Platelet Count (auto) 293 10^3/uL (140-450); Red Blood Cells 5.82 10^6/uL (4.5-5.90); Red Cell Distribution Width 12.8 % (11.8-14.3)
[2020-05-13] MEDS: FUROSEMIDE 20 MG/2 ML VIAL IV SCH (06:19)
[2020-05-13] MEDS: BUDESONIDE (INHALATION) 180 MCG IH IN SCH ×2 (06:26→18:50)
[2020-05-13 07:04] LABS: Calcium 8.9 mg/dL (8.5-10.1); Magnesium 2.6 mg/dL (1.6-2.6)
--- NOTE | 2020-05-13 07:05 | NUR ---
Closing Note Endorse care to dayshift nurse. No status change.
[2020-05-13 07:16] LABS: Potassium 2.9 mmol/L (3.5-5.1)
[2020-05-13] MEDS ORDERED: POTASSIUM CHL 20 Meq TABLET PO ONE ×2 (08:00→11:30)
[2020-05-13] MEDS: ASCORBIC ACID 1,000 MG TAB PO SCH (09:16)
[2020-05-13] MEDS: CHOLECALCIFEROL (VITD3) 2,000 UNIT CAP PO SCH (09:17)
[2020-05-13] MEDS: ZINC SULFATE 220mg CAP or TAB PO SCH (09:17)
[2020-05-13] MEDS: ASPirin 81 mg TAB PO SCH (09:17)
[2020-05-13 09:42] VITALS: BP 105/63
--- NOTE | 2020-05-13 11:15 | NUR ---
Dr. Moody rounding Dr. Moody at bedside discussing POC with patient. Updated MD on this mornings potassium lab value of 2.9 and intervention that was provided. Received new orders for additional potassium supplement and to discontinue Lasix medication. Orders read back to verify. See orders.
[2020-05-13] MEDS: ACETAMINOPHEN 325 MG TAB PO PRN (11:40)
[2020-05-13 12:30] VITALS: BP 110/75
--- NOTE | 2020-05-13 12:37 | NUR ---
Nutrition Followup Notes Wt: 83.2 kg Pt is positive for COVID, with a Regular diet with adequate Po of 92% avg x 2 days per Rn nutrition note. Est Energy needs: 0702-4068 kcals (17-20 kcal/kgBW), Est Protein needs: 67-84 gms/day (0.8-1.0 gm/kgBW). Will continue to monitor and reassess prn. LABS: Na 131L, K 2.9L, GLUC 228H, Alb 2.6L GI: Pt had 2 BM 05/13 per RN doc. BS: 23 low risk. Please refer to wound assessment report for further details PES: 1) Obesity r/t energy intake in excess of energy needs aeb BMI of 30.7 kg/2 2) Altered nutrition related lab values r/t current medical condition aeb elev RFT, hyperglycemia, hyperbilirubinemia, hypoalbuminemia Comments: Will continue to monitor PO status, skin status, pertinent labs and weight trends. Will f/u in 3-5 days Rec: 1) If albumin continues trending down, consider Prostat 1 pkt BID. 2) Continue current plan of care
[2020-05-13] MEDS: ALBUTEROL SULF HFA 90MCG INH 200DOSE IN PRN (14:12)
[2020-05-13 16:36] VITALS: BP 105/70
[2020-05-13 20:00] VITALS: BP 115/70
[2020-05-13] MEDS: ATORVASTATIN 20 MG TAB PO SCH (21:27)
[2020-05-13] MEDS: LORazepam 0.5 MG TAB PO PRN (21:27)
[2020-05-14] MEDS: ALBUTEROL SULF HFA 90MCG INH 200DOSE IN PRN ×2 (00:44→07:00)
[2020-05-14 05:00] VITALS: BP 112/79
[2020-05-14] MEDS: BUDESONIDE (INHALATION) 180 MCG IH IN SCH (07:00)
--- NOTE | 2020-05-14 07:30 | NUR ---
Opening Shift Note Assumed care of patient, awake and alert. Respirations are even and unlabored. No S/S of distress/SOB or pain. Bed is low, locked with 2x side rails up. Call light is within reach. Instructed on POC and to call for assist PRN, will continue to monitor for changes Q1hr and PRN.
[2020-05-14 08:50] VITALS: BP 111/69
[2020-05-14] MEDS: CHOLECALCIFEROL (VITD3) 2,000 UNIT CAP PO SCH (09:00)
[2020-05-14] MEDS: ZINC SULFATE 220mg CAP or TAB PO SCH (09:00)
[2020-05-14] MEDS: ASCORBIC ACID 1,000 MG TAB PO SCH (09:00)
[2020-05-14] MEDS: ASPirin 81 mg TAB PO SCH (09:00)
--- NOTE | 2020-05-14 11:15 | NUR ---
Dr. Moody rounding Dr. Moody is at bedside discussing POC with patient. Patient to be discharged later today.
[2020-05-14 12:30] VITALS: BP_SYST 105; BP_SYST 117; BP_SYST 127; BP_DIAS 71; BP_DIAS 72; BP_DIAS 75
[2020-05-14] MEDS: ACETAMINOPHEN 325 MG TAB PO PRN (12:47)
[2020-05-14 13:19] VITALS: BP 117/75
--- NOTE | 2020-05-14 16:00 | NUR ---
D/C Planning Per social service consult for home oxygen at 2l/min. Faxed clinical information to [facility] requesting for portable oxygen to be deliver to front lobby and concentrate oxygen to patient home. Per Lo with [facility] portable oxygen was deliver to front lobby at 15:30 and concentrate oxygen will be deliver today between 14:30-17:30 to patient home. Informed JORDEN Mendez.
[2020-05-14 16:04] VITALS: BP 127/72
[2020-05-14 17:00] VITALS: BP 127/72
--- NOTE | 2020-05-14 18:20 | NUR ---
Discharge instructions given as ordered. Encourage to follow up with PMD as instructed. Provided patient with information to follow up appointment. All questions and concerns addressed. Patient verbalized understanding. Oxygen was delivered to patient and patient was discharged with new equipment. IV removed with catheter intact, pressure dressing applied. Telemetry unit returned to ICU. Patient taken to vehicle via wheelchair with all personal belongings, accompanied by staff. [facility] of discharge. Encouraged patient to tack picker prescribed medications tomorrow morning. Patient verbalized understanding. Patient also encouraged to social distance, wear a mask and wash hands frequently. No distress noted at time of departure.
== END 2020-05-14 18:20 | disposition home or self-care (01) | DRG 720 ==
LOC: EDBD 12:22 → ER 12:22 → OVERFLOW 15:19 → TELE-CENTR 21:25
PROVIDERS: ADMIT Hospitalist; ATTEND Internal Medicine
PROC: XW033E5 Introduction of Remdesivir Anti-infective into Peripheral Vein, Percutaneous Approach, New Technology Group 5 (ICD-10-PCS; principal; 2020-05-01)
DX: A41.89 Other specified sepsis (principal); U07.1 COVID-19; J12.89 Other viral pneumonia; J96.01 Acute respiratory failure with hypoxia; E66.01 Morbid (severe) obesity due to excess calories; E55.9 Vitamin D deficiency, unspecified; E78.5 Hyperlipidemia, unspecified; I10 Essential (primary) hypertension; R73.03 Prediabetes
CPT/HCPCS: 36415; 36600; 71045; 80048; 80053; 80061; 80202; 80307; 81001; 82306; 82728; 82805; 83036; 83605; 83615; 83735; 84132; 84443; 84484; 85025; 85379; 86141; 87040; 87086; 87426; 93005; 94640; 96365; 96366; 96372; 96375; 97163; 99291; G0378; J1100; J2543; J3480

== ENCOUNTER → 2022-02-18 | Outpatient (CLI) | payer MEDICAID ==
[~2022-02-18] MED LIST: ACET-1304 PO; ALBU108A5 IN; ALBUTEROL SULF 2.5 MG/0.5ML(0.5%) NEB SOLN ONE; IBUP800T26 PO; LOSA25TA38 PO; PRED20TA2 PO; SODIUM CHLORIDE 0.9 % NEB SOLN 3ML NEB ONE
== END | disposition home or self-care (01) ==
LOC: RT 09:36
PROVIDERS: ATTEND Internal Medicine Pulmonary Disease
DX: J44.9 Chronic obstructive pulmonary disease, unspecified (principal); R06.00 Dyspnea, unspecified; F17.210 Nicotine dependence, cigarettes, uncomplicated
CPT/HCPCS: 94060; 94618; 94727; 94729

== ENCOUNTER → 2023-07-01 | Outpatient (CLI) | payer MEDICAID ==
[~2023-07-01] MED LIST changes: +IBUP-1455 PO; -IBUP800T26 PO; +LOSA25TA15 PO; -LOSA25TA38 PO; -SODIUM CHLORIDE 0.9 % NEB SOLN 3ML NEB ONE
== END | disposition home or self-care (01) ==
LOC: RT 11:12
PROVIDERS: ATTEND Internal Medicine Pulmonary Disease
DX: J44.9 Chronic obstructive pulmonary disease, unspecified (principal); R05.9 Cough, unspecified
CPT/HCPCS: 94060; 94727; 94729

== ENCOUNTER 2023-07-16 16:21 | Emergency (ER) | payer MEDICAID ==
[~2023-07-16] VITALS: Ht 165.1 cm; Wt 93.0 kg
[~2023-07-16 16:21] MED LIST changes: -ALBUTEROL SULF 2.5 MG/0.5ML(0.5%) NEB SOLN ONE
[2023-07-16 16:28] VITALS: BP 107/69; RESP 18; O2SAT 96
[2023-07-16 16:58] LABS: Basophils # (auto) 0.1 10 ^3/uL (0-0.2); Basophils % (auto) 0.7 % (0.0-2.0); Eosinophils # (auto) 0.2 10 ^3/uL (0-0.8); Eosinophils % (auto) 1.9 % (0.0-7.0); Hematocrit 44.5 % (41.0-53.0); Hemoglobin 15.2 g/dL (13.5-17.5); Lymphocytes # (auto) 2.3 10 ^3/uL (0.4-5.4); Lymphocytes % (auto) 26.7 % (10.0-50.0); Mean Corpuscular Hemoglobin 29.4 pg (28.0-32.0); Mean Corpuscular Volume 86.3 fL (80.0-100.0); Monocytes # (auto) 0.9 10 ^3/uL (0-1.3); Monocytes % (auto) 9.9 % (0.0-12.0); Neutrophils # (auto) 5.3 10 ^3/uL (1.6-8.6); Neutrophils % (auto) 60.8 % (37.0-80.0); Nucleated Red Blood Cells % 0.1 %; Red Blood Cells 5.16 10^6/uL (4.5-5.90); White Blood Cell 8.7 10^3/uL (4.4-10.8)
[2023-07-16 17:17] LABS: Alanine Aminotransferase 69 U/L (7-40); Albumin 4.5 g/dL (3.2-4.8); Alkaline Phosphatase 61 U/L (46-116); Anion Gap 10 (5-15); Aspartate Aminotransferase 81 U/L (13-40); BUN/Creatinine Ratio 12.7 (10.0-20.0); Blood Urea Nitrogen 10 mg/dL (9-23); Calcium 9.9 mg/dL (8.5-10.1); Carbon Dioxide 22 mmol/L (20-30); Chloride 99 mmol/L (98-107); Glucose 108 mg/dL (74-106); Potassium 3.3 mmol/L (3.5-5.1); Sodium 131 mmol/L (136-145)
[2023-07-16 17:18] LABS: Bilirubin, Total 0.7 mg/dL (0.2-1.0); Total Protein 6.8 g/dL (5.7-8.2)
[2023-07-16 17:38] LABS: INR 1.13 (0.9-1.15); Partial Thromboplastin Time 29.6 SEC (24.5-34.5); Prothrombin Time 11.8 sec (9.3-11.8)
[2023-07-16 18:19] VITALS: PULSE 74
== END 2023-07-16 19:16 | disposition home or self-care (01) ==
LOC: ER 16:21 → EDBD 16:21 → ER 19:16
DX: R07.89 Other chest pain (principal); E11.9 Type 2 diabetes mellitus without complications; I10 Essential (primary) hypertension; R42 Dizziness and giddiness
CPT/HCPCS: 36415; 71045; 80053; 84484; 85025; 85610; 85730; 93005

== ENCOUNTER 2023-09-06 07:06 | Day surgery (SDC) | payer MEDICAID ==
[2023-09-06] VITALS (7 sets, daily range): BP systolic 90–100; BP diastolic 45–62; PULSE 59–71; RESP 14–24; O2SAT 92–97
[~2023-09-06] VITALS: Ht 165.1 cm; Wt 84.4 kg
[~2023-09-06 07:06] MED LIST changes: -ACET-1304 PO; +ALBU108A14 IN; -ALBU108A5 IN; +ATOR-507 PO; +CHLO25TA2 PO; +FENO160T PO; +FINA5TAB4 PO; +FLUT1AER17 IN; +FOLI400T5 PO; +HYDR1CAP27 PO; +LOSA-533 PO; -LOSA25TA15 PO; +METF-370 PO; +MONT-8 PO; +PANT40T PO; +POM PO; -PRED20TA2 PO; +SITA100T7 PO; +TAMS0.4C36 PO; +THIA100T10 PO; +UMEC1AER IN
[2023-09-06] MEDS ORDERED: VERAPAMIL 2.5MG/ML INJ 2ML VIAL IV ONE (08:43)
[2023-09-06] MEDS ORDERED: ANGIOMAX 250 MG VIAL IV ONE (08:43)
[2023-09-06] MEDS ORDERED: MIDAZOLAM HCL 2MG/2ML 2ml VIAL (1mg/ml) ONE (08:43)
[2023-09-06] MEDS ORDERED: HEPARIN SODIUM (PORCINE) 5000 UNITS/ML 1ML VIAL ONE (08:43)
[2023-09-06] MEDS ORDERED: fentaNYL CITRATE 100 MCG/2 ML VL ONE (08:43)
[2023-09-06] MEDS ORDERED: SODIUM CHL 0.9% 0 ML ONE (08:44)
== END 2023-09-06 11:55 | disposition home or self-care (01) ==
LOC: CATH 07:06
PROVIDERS: ATTEND Internal Medicine
DX: R94.39 Abnormal result of other cardiovascular function study (principal); I25.119 Atherosclerotic heart disease of native coronary artery with unspecified angina pectoris; Z83.3 Family history of diabetes mellitus; Z88.6 Allergy status to analgesic agent; Z79.899 Other long term (current) drug therapy; Z98.890 Other specified postprocedural states
CPT/HCPCS: 93458; C1725; C1769; C1894; J1644; J2250; J3010; J7030; 99152

== ENCOUNTER → 2024-08-07 | Outpatient (CLI) | payer MEDICAID ==
[~2024-08-07] MED LIST changes: +ALBUTEROL SULF 2.5 MG/0.5ML(0.5%) NEB SOLN ONE; -TAMS0.4C36 PO; +TAMS0.4C39 PO
== END | disposition home or self-care (01) ==
LOC: RT 10:33
PROVIDERS: ATTEND Internal Medicine Pulmonary Disease
DX: R06.00 Dyspnea, unspecified (principal)
CPT/HCPCS: 94060; 94618; 94727; 94729